=== PATIENT | female | born 1960 | race Caucasian/White ===

== ENCOUNTER → 2016-06-11 17:56 | Outpatient (CLI) | payer MEDICARE, MEDICAID ==
[2016-06-11 19:31] LABS: % SATURATION 19 % (15-55); IRON 55 ug/dl (35-150); TOTAL IRON BIND CAPACITY 286 ug/dl (260-445); UNSAT IRON BIND CAPACITY 231 ug/dl (150-375)
== END | disposition home or self-care (01) ==
LOC: D.LABREF 17:56
PROVIDERS: Family Medicine
DX: Z13.9 Encounter for screening, unspecified (principal); D64.9 Anemia, unspecified

== ENCOUNTER → 2016-06-12 20:25 | Outpatient (CLI) | payer MEDICARE, MEDICAID | END | disposition home or self-care (01) | LOC: D.LABREF 20:25 | DX: R82.71 Bacteriuria (principal) ==

== ENCOUNTER → 2016-08-14 19:37 | Outpatient (CLI) | payer MEDICARE, MEDICAID | END | disposition home or self-care (01) | LOC: D.LABREF 19:37 | DX: R60.0 Localized edema (principal) ==

== ENCOUNTER → 2017-04-02 13:41 | Outpatient (CLI) | payer MEDICARE, MEDICAID | END | disposition home or self-care (01) | LOC: D.MRI 13:41 | DX: M25.562 Pain in left knee (principal) ==

== ENCOUNTER → 2017-05-06 20:07 | Outpatient (CLI) | payer MEDICARE, MEDICAID | END | disposition home or self-care (01) | LOC: D.MAMMO 08:15 | DX: Z12.31 Encounter for screening mammogram for malignant neoplasm of breast (principal) ==

== ENCOUNTER → 2017-07-11 09:30 | Outpatient (CLI) | payer MEDICARE, MEDICAID | END | disposition home or self-care (01) | LOC: D.US 09:00 | DX: R60.0 Localized edema (principal) ==

== ENCOUNTER 2017-07-17 17:52 | Emergency (ER) | payer MEDICARE, MEDICAID ==
[2017-07-17 19:32] LABS: BASOPHILS 0.6 % (0-2); EOSINOPHILS 2.2 % (0-7); HEMATOCRIT 43.1 % (36.0-48.0); HEMOGLOBIN 14.5 g/dL (12-16); IMMATURE GRANULOCYTES 0.6 % (0-5); LYMPHOCYTES 28.7 % (15-50); MCH 30.5 pg (26.0-34.0); MCHC 33.6 g/dL (31.0-37.0); MCV 90.5 fL (80.0-100.0); MONOCYTES 6.5 % (2-11); NEUTROPHILS 61.4 % (40-80); PLATELET COUNT 332 10x3/uL (130-400); RBC 4.76 10x6/uL (4.00-5.40); RDW 13.7 % (11.5-14.5); WBC 12.5 10x3/uL (4.8-10.8)
[2017-07-17 19:47] LABS: INR 1.29 (0.85-1.17); PROTIME 15.7 SECONDS (11.6-15.0)
[2017-07-17 19:55] LABS: ALBUMIN 3.2 g/dL (3.4-5.0); ALKALINE PHOSPHATASE 122 U/L (46-116); ALT (SGPT) 36 U/L (10-68); CALC OSMOLALITY 282 mosm/kg (275-300); CALCIUM 9.8 mg/dL (8.5-10.1); CARBON DIOXIDE 29.5 mmol/L (21.0-32.0); CHLORIDE - SERUM 106 mmol/L (98-107); CREATININE - SERUM 0.8 mg/dL (0.6-1.3); GLUCOSE 91 mg/dL (74-106); POTASSIUM - SERUM 4.3 mmol/L (3.5-5.1); PROTEIN - SERUM 6.9 g/dL (6.4-8.2); SODIUM 141 mmol/L (136-145); UREA NITROGEN 18 mg/dL (7-18); eGFR NON AFRICAN AMERICAN 78 mL/min (90-120)
[2017-07-17 20:02] LABS: PRO BNP 27 pg/mL (0-125)
== END 2017-07-17 20:27 | disposition home or self-care (01) ==
LOC: D.ER 17:52
PROVIDERS: Nurse Practitioner Family
DX: I82.402 Acute embolism and thrombosis of unspecified deep veins of left lower extremity (principal); Z79.01 Long term (current) use of anticoagulants

== ENCOUNTER 2017-07-21 12:26 | Emergency (ER) | payer MEDICARE, MEDICAID | END 2017-07-21 15:15 | disposition home or self-care (01) | LOC: D.ER 12:26 | DX: I82.402 Acute embolism and thrombosis of unspecified deep veins of left lower extremity (principal); Z98.890 Other specified postprocedural states; I87.2 Venous insufficiency (chronic) (peripheral); Z79.01 Long term (current) use of anticoagulants ==

== ENCOUNTER → 2017-07-22 15:01 | Outpatient (CLI) | payer MEDICARE, MEDICAID | END | disposition home or self-care (01) | LOC: D.US 15:01 | DX: R60.0 Localized edema (principal) ==

== ENCOUNTER 2018-04-15 20:48 | Emergency (ER) | payer MEDICARE, MEDICAID ==
[~2018-04-15] VITALS: Ht 152.4 cm; Wt 75.5 kg
[2018-04-15 21:05] VITALS: BP 149/75; Ht 152.4 cm; Wt 75.5 kg
== END 2018-04-15 21:20 | disposition home or self-care (01) ==
LOC: D.ER 20:48
DX: I10 Essential (primary) hypertension (principal)

== ENCOUNTER 2018-05-11 16:12 | Emergency (ER) | payer MEDICARE, MEDICAID ==
[~2018-05-11] VITALS: Ht 152.4 cm; Wt 104.5 kg
[2018-05-11 16:16] VITALS: Ht 152.4 cm; Wt 104.5 kg
[2018-05-11 20:58] VITALS: BP 146/89
== END 2018-05-11 20:05 | disposition left against medical advice (07) ==
LOC: D.ER 16:12
DX: S80.02XA Contusion of left knee, initial encounter (principal); X58.XXXA Exposure to other specified factors, initial encounter; Y93.89 Activity, other specified; Y92.89 Other specified places as the place of occurrence of the external cause